=== PATIENT | male | born 1960 | race Caucasian/White ===

== ENCOUNTER 2020-09-25 10:07 | Emergency (ER) | payer SELFPAY ==
[~2020-09-25] VITALS: Ht 180.3 cm; Wt 90.7 kg
[2020-09-25 10:12] VITALS: BP 151/95
--- NOTE | 2020-09-25 10:20 | NUR ---
Patient ambulated to bed 6. RN evaluating patient at bedside.
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
--- NOTE | 2020-09-25 11:14 | NUR ---
ANIMAL BITE REPORT FAXED TO [facility] - [phone]. CONFIRMATION RECEIVED.
--- NOTE | 2020-09-25 11:29 | NUR ---
lead principal technical architect at bedside.
[2020-09-25 12:25] VITALS: BP 151/95
--- NOTE | 2020-09-25 12:25 | NUR ---
Patient discharged with v/s stable. Written and verbal after care instructions given and explained. Patient alert, oriented and verbalized understanding of instructions. Ambulatory with steady gait. All questions addressed prior to discharge. ID band removed. Patient advised to follow up with PMD. Rx of Augmentin 875mg given. Patient educated on indication of medication including possible reaction and side effects. Opportunity to ask questions provided and answered.
== END 2020-09-25 12:25 | disposition home or self-care (01) ==
LOC: MED 10:07
DX: M79.642 Pain in left hand (principal); E11.9 Type 2 diabetes mellitus without complications; W54.0XXA Bitten by dog, initial encounter; Y93.89 Activity, other specified; Y92.89 Other specified places as the place of occurrence of the external cause; Y99.8 Other external cause status
CPT/HCPCS: 73130; 99283